=== PATIENT | female | born 1955 | race American Indian/Alaskan Native ===

== ENCOUNTER 2020-11-10 17:46 | Emergency (ER) | payer MEDICARE, MEDICAID ==
--- NOTE | 2020-11-10 19:26 | Emergency Department Report ---
ED General Adult HPI - General Chief complaint: Skin Rash Stated complaint: BLOOD PRESSURE Time Seen by Provider: 11/10/20 19:20 Source: patient Mode of arrival: Ambulatory Limitations: No Limitations - History of Present Illness Initial comments: 65-year-old female presents to the emergency room stating that she has a rash on her chest is been there for a few days. She denies any itchiness. She states that she is allergic to the sun but is currently in the sun. Patient also complains of both legs hurt from walking too much. She denies any recent falls. Patient also asked for a refill on her blood pressure medicine but does not know what the medications name is. Patient's blood pressure is stable at 131/84. Onset/Timin -: week(s) Location: chest, left, right, lower extremity Severity scale (0 -10): 3 Consistency: intermittent Improves with: none Worsens with: movement, other (Chest rash from being out in the sun) Associated Symptoms: denies other symptoms. denies: diaphoresis, fever/chills, nausea/vomiting Treatments Prior to Arrival: none - Related Data Previous Rx's Medication Instructions Recorded Last Taken Type Acetaminophen [Acetaminophen 8 650 mg PO Q8H PRN #30 tablet.er 11/10/20 Unknown Rx Hour] Clotrimazole/Betamethasone 1 applicatio TP BID #1 tube 11/10/20 Unknown Rx lisinopriL [Lisinopril] 10 mg PO QDAY #30 tablet 11/10/20 Unknown Rx Allergies Allergy/AdvReac Type Severity Reaction Status Date / Time No Known Allergies Allergy Verified 11/10/20 17:58 ED Review of Systems ROS: Stated complaint: BLOOD PRESSURE Other details as noted in HPI Comment: All other systems reviewed and negative ED Past Medical Hx - Past Medical History Previous Medical History?: Yes Hx Hypertension: Yes - Surgical History Past Surgical History?: Yes Hx Appendectomy: Yes - Medications Home Medications: Home Medications Medication Instructions Recorded Confirmed Last Taken Type Acetaminophen [Acetaminophen 8 650 mg PO Q8H PRN #30 tablet.er 11/10/20 Unknown Rx Hour] Clotrimazole/Betamethasone 1 applicatio TP BID #1 tube 11/10/20 Unknown Rx lisinopriL [Lisinopril] 10 mg PO QDAY #30 tablet 11/10/20 Unknown Rx ED Physical Exam - General Limitations: No Limitations General appearance: alert, in no apparent distress - Head Head exam: Present: atraumatic, normocephalic - Eye Eye exam: Present: normal appearance - ENT ENT exam: Present: mucous membranes moist - Respiratory Respiratory exam: Absent: normal lung sounds bilaterally, chest wall tenderness - Cardiovascular Cardiovascular Exam: Present: regular rate, normal rhythm. Absent: systolic murmur, diastolic murmur, rubs, gallop - Extremities Exam Extremities exam: Present: normal inspection, full ROM. Absent: pedal edema, joint swelling - Back Exam Back exam: Present: normal inspection, full ROM - Neurological Exam Neurological exam: Present: alert, oriented X3, normal gait - Psychiatric Psychiatric exam: Present: normal affect, normal mood - Skin Skin exam: Present: rash, erythema ED Course Vital Signs 11/10/20 11/10/20 17:49 17:54 Temperature 98.6 F 98.8 F Pulse Rate 101 H 101 H Respiratory 18 20 Rate Blood Pressure 185/126 Blood Pressure 131/84 [Right] O2 Sat by Pulse 97 97 Oximetry ED Medical Decision Making - Medical Decision Making 65-year-old female presents to the emergency room stating that she has a rash on her chest is been there for a few days. She denies any itchiness. She states that she is allergic to the sun but is currently in the sun. Patient also complains of both legs hurt from walking too much. She denies any recent falls. Patient also asked for a refill on her blood pressure medicine but does not know what the medications name is. Patient's blood pressure is stable at 131/84. Patient called her pharmacy and found that she is taking lisinopril 10 mg daily. Will refill for 30 days. Critical care attestation.: If time is entered above; I have spent that time in minutes in the direct care of this critically ill patient, excluding procedure time. ED Disposition Clinical Impression: Hypertension, Rash and nonspecific skin eruption Disposition: - TO HOME OR SELFCARE Is pt being admited?: No Does the pt Need Aspirin: No Condition: Stable Instructions: Hypertension (ED), Hypertension, Adult, [id number], Rash, Adult, [id number] Additional Instructions: Please take your blood pressure medicine every day. Use cream to your rash. Take your acetaminophen as needed for leg pain. Follow-up with your clinic provider. Prescriptions: Acetaminophen [Acetaminophen 8 Hour] 650 mg PO Q8H PRN #30 tablet.er PRN Reason: Pain , Severe (7-10) Clotrimazole/Betamethasone 1 applicatio TP BID #1 tube lisinopriL [Lisinopril] 10 mg PO QDAY #30 tablet Referrals: [facility] [Outside] - 3-5 Days [facility] [Outside] - 3-5 Days Time of Disposition: 19:32
[2020-11-10 20:04] VITALS: BP 173/95
== END 2020-11-10 19:45 | disposition home or self-care (01) ==
LOC: ED 17:46
DX: R21 Rash and other nonspecific skin eruption (principal); I10 Essential (primary) hypertension; Z90.49 Acquired absence of other specified parts of digestive tract; Z79.899 Other long term (current) drug therapy
CPT/HCPCS: 99282